=== PATIENT | female | born 1985 | race Caucasian/White ===

== ENCOUNTER 2022-06-08 21:21 | Emergency (ER) | payer MEDICAID, OTHER ==
[~2022-06-08] VITALS: Ht 160 cm; Wt 70.5 kg
[2022-06-08] MEDS ORDERED: ACETAMINOPHEN 500 MG TABLET PO ONE (22:00)
[2022-06-08] MEDS ORDERED: IBUPROFEN 600 MG TABLET PO ONE (22:00)
[2022-06-08] MEDS ORDERED: BACLOFEN 10 MG TABLET PO ONE (22:15)
[2022-06-08] MEDS ORDERED: ACET-66 PO (23:05)
[2022-06-08] MEDS ORDERED: BACL10TA PO (23:05)
[2022-06-08 23:31] VITALS: BP 137/86
== END 2022-06-09 00:21 | disposition home or self-care (01) ==
LOC: EMS 21:34
DX: S13.4XXA Sprain of ligaments of cervical spine, initial encounter (principal); S63.501A Unspecified sprain of right wrist, initial encounter; T24.101A Burn of first degree of unspecified site of right lower limb, except ankle and foot, initial encounter; V89.2XXA Person injured in unspecified motor-vehicle accident, traffic, initial encounter; Y93.89 Activity, other specified; Y92.89 Other specified places as the place of occurrence of the external cause; Y99.8 Other external cause status
CPT/HCPCS: 72040; 72070; 72100; 72170; 99284; 73110-TC; Z7502; Z7610

== ENCOUNTER 2022-12-07 11:41 | Emergency (ER) | payer MEDICAID, OTHER ==
[~2022-12-07] VITALS: Ht 170.2 cm; Wt 68.2 kg
[~2022-12-07 11:41] MED LIST: ACET-66 PO; BACL10TA PO
[2022-12-07 11:50] VITALS: BP 135/85
[2022-12-07] MEDS ORDERED: LIDOCAINE 5% TRANSDERMAL PATCH TD ONE (12:45)
[2022-12-07] MEDS ORDERED: ACETAMINOPHEN 500 MG TABLET PO ONE (12:45)
[2022-12-07] MEDS ORDERED: KETOROLAC TROMETHAMINE 30 MG/ML VIAL IM ONE (12:45)
== END 2022-12-07 14:01 | disposition home or self-care (01) ==
LOC: EMS 12:00
DX: G57.02 Lesion of sciatic nerve, left lower limb (principal); Z98.890 Other specified postprocedural states
CPT/HCPCS: 99283; 96372; J1885